=== PATIENT | male | born 1970 | race Caucasian/White ===

== ENCOUNTER 2024-10-15 16:47 | Inpatient (IN) | payer OTHER ==
[2024-10-15] MEDS ORDERED: chlordiazePOXIDE HCL 25 MG CAPSULE PO PRN (17:23)
[2024-10-15] MEDS ORDERED: BENZOCAINE/MENTHOL (CHLORASEPTIC ) LOZENGE MM PRN (17:25)
[2024-10-15] MEDS ORDERED: IBUPROFEN 600 MG TABLET (FP) PO PRN (17:25)
[2024-10-15] MEDS ORDERED: MAG HYDROX/AL HYDROX/SIMETH 30 ML UNIT-DOSE CUP PO PRN (17:25)
[2024-10-15] MEDS ORDERED: NICOTINE POLACRILEX 2 MG GUM BUC PRN (17:25)
[2024-10-15] MEDS ORDERED: BENZONATATE 200 MG CAPSULE PO PRN (17:25)
[2024-10-15] MEDS ORDERED: POLYETHYLENE GLYCOL (HEALTHYLAX) 3350 17 GM PACKET PO PRN (17:25)
[2024-10-15] MEDS ORDERED: IBUPROFEN 400 MG TABLET (FP) PO PRN (17:25)
[2024-10-15] MEDS ORDERED: guaiFENesin 600 MG TABLET.ER (FP) PO PRN (17:25)
[2024-10-15] MEDS ORDERED: MAGNESIUM HYDROX 2400MG/30ML ORAL SUSPENSION 30 ML CUP PO PRN (17:25)
[2024-10-15] MEDS ORDERED: P-EPHED 60MG/TRIPROLIDI 2.5MG TABLET PO PRN (17:25)
[2024-10-15] MEDS ORDERED: NICOTINE POLACRILEX 2 MG LOZENGE BC PRN (17:25)
[2024-10-15] MEDS ORDERED: METHOCARBAMOL 500 MG TABLET PO PRN (17:25)
[2024-10-15] MEDS ORDERED: BISMUTH SUBSALICYLATE 524 MG/30 ML PO PRN (17:25)
[2024-10-15] MEDS ORDERED: ACETAMINOPHEN 325 MG TABLET (FP) PO PRN (17:25)
[2024-10-15] MEDS ORDERED: hydrOXYzine PAMOATE 25 MG CAPSULE (FP) PO PRN (17:25)
[2024-10-15] MEDS ORDERED: ONDANSETRON *ODT* 4 MG TABLET SL PRN (17:25)
[2024-10-15] MEDS ORDERED: propRANOLol HCL 10 MG TABLET PO ONE (17:42)
[2024-10-15] MEDS ORDERED: ASPIRIN 325 MG ENTERIC COATED TABLET (FP) PO ONE (17:49)
[2024-10-15] MEDS ORDERED: chlordiazePOXIDE HCL 25 MG CAPSULE ONE (18:36)
[2024-10-15] MEDS: chlordiazePOXIDE HCL 25 MG CAPSULE PO SCH (18:40)
[2024-10-15] MEDS ORDERED: ALBUTEROL SO4 HFA INHALER IH PRN (19:03)
[2024-10-15] MEDS: propRANOLol HCL 10 MG TABLET PO ONE (19:37)
[2024-10-15] MEDS: ASPIRIN COATED 81 MG TABLET.EC PO ONE (19:37)
[2024-10-15] MEDS: MAGNESIUM OXIDE 400 MG TABLET (FP) PO ONE (19:42)
[2024-10-15] MEDS: THIAMINE 100 MG TABLET PO SCH (22:31)
[2024-10-15] MEDS: MELATONIN 5 MG TABLETS PO SCH (22:31)
[2024-10-15] MEDS: ATORVASTATIN CA 40 MG TABLET (FP) PO SCH (22:32)
[2024-10-15] MEDS: ARTIFICIAL TEARS OPHTHALMIC DROPS OU PRN (23:28)
[2024-10-15] MEDS: INSULIN (NOVOLOG) ASPART 100 UNITS/ML 10ML VIAL SQ ONE (23:51)
[2024-10-16] MEDS: metFORMIN HCL 500 MG TABLET (FP) PO SCH (06:04)
[2024-10-16] MEDS: INSULIN ASPART SLIDING SCALE (NOVOLOG) 1 VIAL SQ SCH (06:07)
[2024-10-16] MEDS ORDERED: PATIENT'S OWN MEDICATION (NON-FORMULARY) (Amlodipine Besylate/Valsartan [Amlodipine-Valsar PO SCH (10:00)
[2024-10-16] MEDS: SERTRALINE HCL 50 MG TABLET (FP) PO SCH (10:05)
[2024-10-16] MEDS: PRENATAL VITAMINS W/ FOLIC ACID TABLET (FP) PO SCH (10:06)
[2024-10-16] MEDS: amLODIPine BESYLATE 10 MG TABLET (FP) PO SCH (10:06)
[2024-10-16] MEDS: VALSARTAN 160 MG TABLET PO SCH (10:50)
[2024-10-16 10:53] LABS: HEMATOCRIT 41.4 % (35.4-49); MCH 29.7 pg (25.7-33.7); MCHC 33.8 g/dl (32.0-35.9); MEAN CELL VOLUME 87.7 fl (80-96); MEAN PLT VOLUME 9.2 fl (7.5-11.1); PLATELET COUNT 255 10^3/uL (134-434); RBC 4.72 M/mm3 (4.00-5.60); RDW 13.2 % (11.9-15.9)
[2024-10-16 10:59] LABS: CHLORIDE 102 mmol/L (98-107); SODIUM 140 mmol/L (136-145)
[2024-10-16 11:02] LABS: CALCIUM 9.5 mg/dL (8.5-10.1)
[2024-10-16 11:03] LABS: ALBUMIN 3.7 g/dl (3.4-5.0); ANION GAP 7 mmol/L (4-13); BLOOD UREA NITROGEN 20.1 mg/dL (7-18); CO2 31 mmol/L (21-32); GLUCOSE,RANDOM 257 mg/dL (74-106)
[2024-10-16 11:05] LABS: SGPT/ALT 34 U/L (13-61)
[2024-10-16 11:06] LABS: SGOT/AST 19 U/L (15-37)
[2024-10-16 11:07] LABS: ALK PHOS 78 U/L (45-117)
[2024-10-16 11:08] LABS: BILIRUBIN,TOTAL 0.4 mg/dL (0.2-1)
[2024-10-16] MEDS: traZODone HCL 100 MG TABLET (FP) PO SCH (22:11)
[2024-10-17] MEDS: chlordiazePOXIDE HCL 25 MG CAPSULE PO SCH (05:58)
[2024-10-17] MEDS: LOPERAMIDE HCL 2 MG CAPSULE PO PRN (10:11)
[2024-10-17] MEDS: DICYCLOMINE HCL 10 MG CAPSULE PO PRN (10:11)
[2024-10-17] MEDS: INSULIN (LEVEMIR) 100 UNITS/ML UNITS SQ SCH (22:39)
[2024-10-17] MEDS ORDERED: INSULIN (NOVOLOG) ASPART 100 UNITS/ML 10ML VIAL ONE (22:43)
[2024-10-18] MEDS ORDERED: chlordiazePOXIDE HCL 10 MG CAPSULE PO PRN
[2024-10-18] MEDS: chlordiazePOXIDE HCL 10 MG CAPSULE PO SCH (05:58)
[2024-10-18] MEDS ORDERED: INSULIN (NOVOLOG) ASPART 100 UNITS/ML 10ML VIAL ONE (22:37)
[2024-10-19] MEDS: chlordiazePOXIDE HCL 10 MG CAPSULE PO SCH (05:55)
[2024-10-19] MEDS: NALOXONE (NYS OPIOID OVERDOSE PROGRAM) 4 MG/0.1 ML SPRAY NS SCH (09:35)
[2024-10-20] MEDS: chlordiazePOXIDE HCL 10 MG CAPSULE PO ONE (06:00)
[2024-10-20] MEDS: NALTREXONE HCL 50 MG TABLET PO SCH (10:26)
[2024-10-20] MEDS ORDERED: ACAMPROSATE CALCIUM 333 MG TABLET.DR PO SCH (14:00)
[2024-10-21 07:13] VITALS: PULSE 60
[2024-10-21 09:15] VITALS: BP 116/70; RESP 16; TEMP 97.8
== END 2024-10-21 12:35 | disposition other institution (70) | DRG 775 ==
LOC: YASAS 16:47 → Y6N 17:30
PROVIDERS: ADMIT Allergy & Immunology; ATTEND Family Medicine Addiction Medicine
PROC: HZ2ZZZZ Detoxification Services for Substance Abuse Treatment (ICD-10-PCS; principal; 2024-10-15)
DX: F10.230 Alcohol dependence with withdrawal, uncomplicated (principal); F12.20 Cannabis dependence, uncomplicated; F17.210 Nicotine dependence, cigarettes, uncomplicated; F10.280 Alcohol dependence with alcohol-induced anxiety disorder; F10.282 Alcohol dependence with alcohol-induced sleep disorder; F10.24 Alcohol dependence with alcohol-induced mood disorder; F32.9 Major depressive disorder, single episode, unspecified; E78.2 Mixed hyperlipidemia; I10 Essential (primary) hypertension; J45.20 Mild intermittent asthma, uncomplicated; E11.9 Type 2 diabetes mellitus without complications; Z79.4 Long term (current) use of insulin; Z62.810 Personal history of physical and sexual abuse in childhood; Z63.8 Other specified problems related to primary support group
CPT/HCPCS: 36415; 80053; 80305; 80307; 82962; 83735; 85027; 86780; 93005; 93010

== ENCOUNTER 2024-11-04 17:45 | Inpatient (IN) | payer OTHER ==
[2024-11-04 18:31] VITALS: BMI 26.0
[2024-11-04] MEDS ORDERED: ALBUTEROL SO4 HFA INHALER IH PRN (18:36)
[2024-11-04] MEDS ORDERED: DOCUSATE SODIUM 100 MG CAPSULE (FP) PO PRN (18:37)
[2024-11-04] MEDS ORDERED: POLYETHYLENE GLYCOL (HEALTHYLAX) 3350 17 GM PACKET PO PRN (18:37)
[2024-11-04] MEDS ORDERED: ACETAMINOPHEN 325 MG TABLET (FP) PO PRN (18:37)
[2024-11-04] MEDS ORDERED: guaiFENesin 600 MG TABLET.ER (FP) PO PRN (18:37)
[2024-11-04] MEDS ORDERED: NALOXONE HCL 0.4 MG/ML VIAL IVPUSH PRN (18:37)
[2024-11-04] MEDS ORDERED: MAG HYDROX/AL HYDROX/SIMETH 30 ML UNIT-DOSE CUP PO PRN (18:37)
[2024-11-04] MEDS ORDERED: BISACODYL 5 MG TABLET.DR (FP) PO PRN (18:37)
[2024-11-04] MEDS ORDERED: MAGNESIUM HYDROX 2400MG/30ML ORAL SUSPENSION 30 ML CUP PO PRN ×2 (18:37→18:40)
[2024-11-04] MEDS ORDERED: NALOXONE (NARCAN) HCL 4 MG/0.1 ML SPRAY NS PRN (18:37)
[2024-11-04] MEDS ORDERED: BENZONATATE 200 MG CAPSULE PO PRN (18:37)
[2024-11-04] MEDS ORDERED: LOPERAMIDE HCL 2 MG CAPSULE PO PRN ×2 (18:37→18:40)
[2024-11-04] MEDS ORDERED: BENZOCAINE/MENTHOL (CHLORASEPTIC ) LOZENGE MM PRN (18:37)
[2024-11-04] MEDS: METHOCARBAMOL 500 MG TABLET PO PRN (20:35)
[2024-11-04] MEDS: hydrOXYzine PAMOATE 25 MG CAPSULE (FP) PO PRN (20:35)
[2024-11-04] MEDS: traZODone HCL 100 MG TABLET (FP) PO SCH (21:29)
[2024-11-04] MEDS: ATORVASTATIN CA 40 MG TABLET (FP) PO SCH (21:29)
[2024-11-04] MEDS: THIAMINE 100 MG TABLET PO SCH (21:29)
[2024-11-04] MEDS: MELATONIN 5 MG TABLETS PO SCH (21:30)
[2024-11-04] MEDS: INSULIN (LEVEMIR) 100 UNITS/ML UNITS SQ SCH (21:30)
[2024-11-04] MEDS: CARBAMIDE PEROXIDE 6.5% OTIC 15 ML BOTTLE AU SCH (21:30)
[2024-11-04] MEDS: MECLIZINE HCL 25 MG TABLET (FP) PO PRN (23:32)
[2024-11-05] MEDS: metFORMIN HCL 500 MG TABLET (FP) PO SCH (06:31)
[2024-11-05] MEDS: amLODIPine BESYLATE 5 MG TABLET (FP) PO SCH (10:05)
[2024-11-05] MEDS: ASPIRIN 81 MG CHEWABLE TABLETS PO SCH (10:05)
[2024-11-05] MEDS: SERTRALINE HCL 50 MG TABLET (FP) PO SCH (10:05)
[2024-11-05] MEDS: PRENATAL VITAMINS W/ FOLIC ACID TABLET (FP) PO SCH (10:05)
[2024-11-05] MEDS: GABAPENTIN 100 MG CAPSULE PO SCH (13:42)
[2024-11-05] MEDS: NALTREXONE HCL 50 MG TABLET PO ONE (16:42)
[2024-11-06] MEDS: NALTREXONE HCL 50 MG TABLET PO SCH (09:37)
[2024-11-06] MEDS ORDERED: NALTREXONE HCL 50 MG TABLET PO SCH (10:00)
[2024-11-08] MEDS: IBUPROFEN 600 MG TABLET (FP) PO PRN (22:41)
[2024-11-09] MEDS ORDERED: ATORVASTATIN CA 20 MG TABLET (FP) ONE (22:28)
[2024-11-10] MEDS: IBUPROFEN 400 MG TABLET (FP) PO PRN (20:16)
[2024-11-11] MEDS ORDERED: VALSARTAN 160 MG TABLET PO SCH (19:00)
[2024-11-11] MEDS: VALSARTAN 160 MG TABLET PO SCH (21:26)
[2024-11-12] MEDS: BACITRACIN 0.9 GM PACKET TP SCH (21:09)
[2024-11-13] MEDS: amLODIPine BESYLATE 5 MG TABLET (FP) PO SCH (21:24)
[2024-11-18] MEDS: FAMOTIDINE 20 MG TABLET PO SCH (09:47)
[2024-11-18] MEDS: MAGNESIUM OXIDE 400 MG TABLET (FP) PO SCH (12:10)
[2024-11-18] MEDS: GABAPENTIN 300 MG CAPSULE PO SCH (13:01)
[2024-11-18] MEDS: propRANOLol HCL 10 MG TABLET PO SCH (14:27)
[2024-11-24 23:19] VITALS: BP 151/81; PULSE 68; RESP 20; TEMP 96
== END 2024-11-25 09:06 | disposition home or self-care (01) | DRG 772 ==
LOC: YASAS 17:45 → Y5N 19:32 → Y3W 11-06 10:37
PROVIDERS: ADMIT Psychiatry & Neurology Pain Medicine; ATTEND Psychiatry & Neurology Pain Medicine
PROC: HZ42ZZZ Group Counseling for Substance Abuse Treatment, Cognitive-Behavioral (ICD-10-PCS; principal; 2024-11-04)
DX: F10.20 Alcohol dependence, uncomplicated (principal); F12.20 Cannabis dependence, uncomplicated; F17.210 Nicotine dependence, cigarettes, uncomplicated; F10.282 Alcohol dependence with alcohol-induced sleep disorder; F10.280 Alcohol dependence with alcohol-induced anxiety disorder; F10.24 Alcohol dependence with alcohol-induced mood disorder; F32.9 Major depressive disorder, single episode, unspecified; G62.1 Alcoholic polyneuropathy; G47.00 Insomnia, unspecified; I10 Essential (primary) hypertension; E78.2 Mixed hyperlipidemia; E11.9 Type 2 diabetes mellitus without complications; Z79.4 Long term (current) use of insulin; H81.10 Benign paroxysmal vertigo, unspecified ear; J45.20 Mild intermittent asthma, uncomplicated; J30.2 Other seasonal allergic rhinitis
CPT/HCPCS: 36415; 70496-TC; 70498-TC; 70551-TC; 71045-TC-FY; 73070-TC-LT-FY; 80053; 80305; 80307; 82962; 83036; 83735; 84100; 84443; 84484; 85025; 93005; 93010; 97116-GP; 97161-GP; 99282-25; G0378